=== PATIENT | female | born 1975 | race Caucasian/White ===

== ENCOUNTER 2024-12-24 08:57 | Emergency (ER) | payer OTHER, SELFPAY ==
[2024-12-24] VITALS (11 sets, daily range): BP systolic 116–163; BP diastolic 81–100; PULSE 69–93; RESP 12–18; TEMP 36.6–36.7; O2SAT 96–100; BMI 35.8
--- NOTE | ~2024-12-24 | XR_ITS ---
EXAMINATION: XR CHEST 2 VIEWS HISTORY: cp COMPARISON: Comparison is made with the prior examination dated 09/12/2019. FINDINGS: PA and lateral views of the chest are submitted. The lungs are expanded and clear. There is no pleural effusion, pneumothorax, or pulmonary vascular congestion. The heart is normal in size. The bones are intact. XR/XR chest 2V IMPRESSION: No acute cardiopulmonary abnormality. Electronically signed by: Herson Stevens MD 12/24/2024 09:34 AM EDT
--- NOTE | ~2024-12-24 | CT_ITS ---
EXAMINATION: CT ANGIOGRAM CHEST CLINICAL INFORMATION: Chest pain. Shortness of breath. COMPARISON: None available. TECHNIQUE: Multiple axial images were obtained through the chest after the administration of 65 mL of Omnipaque 350 intravenous contrast. Extensive vascular post-processing including two-dimensional and three-dimensional reformatted images were created and reviewed on an independent workstation. SmartPrep technique This CT examination was performed using dose optimization techniques as appropriate, variously including the following: *Automated exposure control *Adjustment of mA and/or kV according to patient size (this includes techniques or standardized protocols for targeted exams where dose is matched to indication/reason for exam; i.e. extremities or head) *Use of iterative reconstruction technique. DLP: 284 mg centimeter. FINDINGS: Inadequate smart prepped technique. The main pulmonary artery or its main branches are patent without intraluminal filling defects. The subsegmental pulmonary artery branches demonstrated no gross intraluminal filling defects. No aneurysm or dissection, thoracic aorta. No lymphadenopathy, mediastinum or perihilar. No pericardial effusion. No gross consolidation, pleural effusion or pneumothorax. No bronchiectasis. No honeycombing. Nonspecific 1 mm pulmonary nodule in the periphery of the right lower lung lobe. No acute fracture or listhesis in the axial skeleton. Sternum is intact. The ribs are grossly intact. The scapula is intact bilaterally. There is a cystic lesion at the corticomedullary junction of the upper pole and midportion of the right kidney. CT/CT angio chest PE protocol IMPRESSION: No acute pulmonary artery emboli. No aneurysm or dissection, thoracic aorta. No acute airspace disease. Fleischner guidelines were followed. Electronically signed by: Timur Amezcua MD 12/24/2024 02:42 PM EDT
--- NOTE | 2024-12-24 09:00 | ECG_ITS ---
Test Reason : CHEST PAIN Blood Pressure : */* mmHG Vent. Rate : 83 BPM Atrial Rate : 83 BPM P-R Int : 144 ms QRS Dur : 72 ms QT Int : 354 ms P-R-T Axes : 41 4 30 degrees QTcB Int : 415 ms Normal sinus rhythm Cannot rule out Anterior infarct , age undetermined Abnormal ECG No previous ECGs available Referred By: Generic ED Physician Electronically Signed By: MARQUITA RAWSL
[2024-12-24 09:28] LABS: MANUAL DIFF FLAG NO
[2024-12-24 09:29] LABS: Basophils Percent Auto 0.4 % (0-2); Eosinophils Absolute Auto 0.1 X10*3/uL (0.0-0.4); Eosinophils Percent Auto 0.6 % (0-4); Hemoglobin 14.1 g/dl (12.0-16.0); Imm Gran Abs Auto 0.03 X10*3/uL (0.00-0.03); Imm Gran Pct Auto 0.3 % (0.0-0.4); Lymphocytes Absolute Auto 2.1 X10*3/uL (1.2-4.9); Lymphocytes Percent Auto 23.4 % (20-40); Mean Corpuscular HGB Conc 34.4 g/dl (31.0-35.0); Mean Corpuscular Hemoglobin 30.7 pg (27.0-33.0); Mean Corpuscular Volume 89.1 fL (80.0-98.0); Mean Platelet Volume 10.8 fL (9.4-12.3); Monocytes Absolute Auto 0.6 X10*3/uL (0.1-1.2); Monocytes Percent Auto 6.5 % (2-11); Neutrophils Absolute Auto 6.2 x10*3/uL (2.0-8.3); Neutrophils Percent Auto 68.8 % (45-73); Platelet Count 290 X10*3/uL (160-400); Red Cell Distribution Width 12.9 % (11.0-16.0)
[2024-12-24 09:45] LABS: Alanine Aminotransferase 34 U/L (0-31); Albumin Level 4.6 g/dL (3.5-5.0); Alkaline Phosphatase 102 U/L (39-117); Anion Gap 14 (12-20); Aspartate Amino Transferase 20 U/L (5-31); Bilirubin Total 0.4 mg/dL (0.0-1.0); Blood Urea Nitrogen 13 mg/dL (9-16); Carbon Dioxide 26 mmol/L (22-29); Chloride 106 mmol/L (96-108); Creatinine Clr Calc Pharmacy 85.2; Estimated Glomerular Filt Rate > 60; Glucose Random 102 mg/dL (60-115); Sodium 142 mmol/L (135-145)
[2024-12-24 09:54] LABS: Troponin-I High Sensitivity < 2.7 ng/L (<3.5-17.0)
--- NOTE | 2024-12-24 11:36 | ED_ITS ---
HPI - General Adult General Chief complaint: General Medical Stated complaint: Chest Pain Time Seen by Provider: 12/24/24 10:02 Source: patient, RN notes reviewed and old records reviewed Mode of arrival: ambulatory History of Present Illness ED Provider: Annalisa Marin PA-C HPI narrative: 49-year-old female with no significant past medical history presenting to the ED complaining of elevated BP at home, exertional dyspnea, chest pressure/tightness x yesterday, and episode of diaphoresis around 01:00AM. Also reports lightheadedness and sinus pressure x1 week. States apple watch notified her she was tachycardic. Denies fever, chills, cough, abdominal pain, vomiting, diarrhea, dysuria/hematuria. Reports recent travel with multiple flights back in [facility] to [place] over the past 7 months. Denies history of clots or cigarette smoking Related Data Previous Rx's ?Medication ?Instructions ?Recorded amoxicillin 875 mg tablet 875 mg PO BID 5 days #10 tabs 12/24/24 volxhaxhmb-ydiesiivfrwjg-ucgfcfuu 1 cap PO Q4-6H PRN headache #7 caps 12/24/24 50 mg-300 mg-40 mg capsule (Fioricet) Allergies Allergy/AdvReac Type Severity Reaction Status Date / Time codeine [CODEINE] Allergy Unknown ANAPHYLAXIS Verified 12/24/24 09:15 Review of Systems 2 Review of Systems: Yes all other systems are reviewed and are negative Constitutional: Constitutional: Reports as per HPI Neurologic: Denies Abnormal speech present PMFSH Past Medical History Attestation statement: The following information was validated with the patient. Source: old records reviewed Social History Social History Smoked in Last 30 Days: No Use of substances other than those prescribed or required for medical reasons: No Advance Directives: No Advance Directives Information Provided: Yes Physical Exam ED Vital Signs: Vital Signs - 24 hr 12/24/24 09:12 12/24/24 10:02 12/24/24 10:05 Temperature 98.1 F 97.9 F Pulse Rate 82 81 83 Respiratory Rate 18 14 16 Blood Pressure 133/96 H 144/94 H 163/100 H Pulse Oximetry 100 96 99 Oxygen Delivery Method Room Air Room Air Room Air 12/24/24 10:10 12/24/24 10:15 12/24/24 12:11 Temperature 98.0 F Pulse Rate 92 92 74 Respiratory Rate 16 16 14 Blood Pressure 132/89 138/81 134/84 Pulse Oximetry 97 Oxygen Delivery Method Room Air 12/24/24 14:35 12/24/24 15:44 12/24/24 15:44 Temperature 97.9 F 98.0 F Pulse Rate 75 74 69 Respiratory Rate 13 12 Blood Pressure 136/86 126/87 126/87 Pulse Oximetry 97 98 Oxygen Delivery Method Room Air Room Air 12/24/24 15:45 12/24/24 15:46 12/24/24 15:50 Temperature 97.9 F Pulse Rate 92 93 93 Respiratory Rate 16 Blood Pressure 121/86 116/91 H 116/91 H Pulse Oximetry 100 Oxygen Delivery Method Room Air BMI result Body Mass Index 35.8 Const General: cooperative, healthy appearing and no acute distress Orientation/consciousness: patient oriented x3 Limitations: no limitations HENMT Head: Yes normal to inspection and Yes atraumatic Ears: hearing grossly normal bilaterally General nose exam: Normal external nose present Face and sinus: Yes normal facial exam Eyes General: appearance normal, both eyes and all related structures EOM: EOMs intact bilaterally Neck Neck: Yes normal visual inspection and Yes no meningeal signs Resp Effort & Inspection: normal respiratory effort and no respiratory distress Auscultation: clear to auscultation bilaterally, no crackles, no rhonchi and no wheezes Cardio Rate: regular rate Heart sounds: S1 normal heart sound present and S2 normal heart sound present GI Inspection: Yes normal to inspection Palpation (GI): Soft to palpation, nontender, no guarding and not rigid Skin Rashes: no rashes Wounds: no wounds Neuro General: patient oriented x3, tone normal, moves all extremities, no meningeal signs, no focal motor deficits and CN's II-XI intact bilaterally Cranial nerves: Yes CN's II-XII intact bilaterally and Yes Bilaterally intact EOM present Cognition (Neuro): normal cognition Speech: No Abnormal speech present Gait exam (Neuro): Normal gait present Extrem General: Yes normal to inspection, Yes no pedal edema and Yes no calf tenderness Course Course Course Narrative: -troponin x2 negative, mi unlikely -viral testing negative 1320--D-dimer elevated to 238 > will obtain CTA to rule out PE XR chest 2V IMPRESSION: No acute cardiopulmonary abnormality. [address]1913--DA angio chest PE protocol IMPRESSION: No acute pulmonary artery emboli. No aneurysm or dissection, thoracic aorta. No acute airspace disease. Fleischner guidelines were followed. -orthostatic vital signs negative. On re-evaluation patient reports symptomatic improvement. Denies headache at present. Feels comfortable for discharge home at this time. Will discharge with antibiotics for sinusitis and a few pills of Fioricet for headache. Recommended close PCP follow-up. Results discussed with patient including worrisome signs and symptoms and strict return precautions, and when to return to the emergency department. They verbalized understanding and feel safe for discharge at this time. Medications Administered Discontinued Medications Generic Name Dose Route Start Last Admin Trade Name Freq PRN Reason Stop Dose Admin Acetaminophen/Butalbital/Caffeine 1 tab 12/24/24 11:17 12/24/24 11:38 Butalb/Acetamin/Caff 50/325/40 Tablet PO 12/24/24 11:18 1 tab ONCE ONE Administration Iohexol 100 ml 12/24/24 14:29 12/24/24 14:29 Iohexol 350 Mg/Ml 100 Ml Infus..Btl IV 12/24/24 14:30 65 ml ONCE ONE Administration Medical Decision Making Medical Decision Making MDM Narrative: 49-year-old female with no significant past medical history presenting to the ED complaining of elevated BP at home, exertional dyspnea, chest pressure/tightness x yesterday, and episode of diaphoresis around 01:00AM. Also reports lightheadedness and sinus pressure x1 week. On exam vital signs stable, NAD, nontoxic appearing, lungs CTA, abdomen soft/nontender. Concern for ACS vs PE vs ?CHF vs sinusitis vs PNA vs viral illness. Low suspicion for dissection, hypertensive urgency/emergency, dissection, pancreatitis Plan: EKG, labs, UA, CXR, viral testing, SARs, reassess Please refer to course for remaining clinical decision making, interpretation of labs/imaging results, and discussions with consultants and/or family members. Differential Diagnosis Differential Diagnoses: The differential diagnosis associated with the presentation includes As above Admission/Observation Consideration of admission/observation: Escalation of care including admission/observation considered Lab Data MDM Lab Attestation statement: I reviewed the patient's lab results. 12/24/24 09:24 12/24/24 09:24 Labs: Lab Results 12/24/24 12/24/2412/24/25 Range/Units 09:24 11:30 12:23 WBC 9.0 (4.8-10.8) X10*3/uL RBC 4.60 (4.20-5.50) X10*6/uL Hgb 14.1 (12.0-16.0) g/dl Hct 41.0 (37.0-47.0) % MCV 89.1 (80.0-98.0) fL MCH 30.7 (27.0-33.0) pg MCHC 34.4 (31.0-35.0) g/dl RDW 12.9 (11.0-16.0) % Plt Count 290 (160-400) X10*3/uL MPV 10.8 (9.4-12.3) fL Immature Gran % (Auto) 0.3 (0.0-0.4) % Neut % (Auto) 68.8 (45-73) % Lymph % (Auto) 23.4 (20-40) % [place] % (Auto) 6.5 (2-11) % Eos % (Auto) 0.6 (0-4) % Baso % (Auto) 0.4 (0-2) % Lymph # (Auto) 2.1 (1.2-4.9) X10*3/uL [place] # (Auto) 0.6 (0.1-1.2) X10*3/uL Eos # (Auto) 0.1 (0.0-0.4) X10*3/uL Baso # (Auto) 0.0 (0.0-0.2) X10*3/uL Abs Immat Gran (auto) 0.03 (0.00-0.03) X10*3/uL Absolute Neuts (auto) 6.2 (2.0-8.3) x10*3/uL Absolute Nucleated RBC 0.000 (0.0-0.012) X10*3/uL Nucleated RBC % (auto) 0.0 (0.0-0.2) /100WBC D-Dimer High Sensitivty 238 NG/ML Sodium 142 (135-145) mmol/L Potassium 4.0 (3.3-5.1) mmol/L Chloride 106 (96-108) mmol/L Carbon Dioxide 26 (22-29) mmol/L Anion Gap 14 (12-20) BUN 13 (9-16) mg/dL Creatinine 0.74 (0.5-1.4) mg/dL Estim Creat Clear Calc 85.2 Estimated GFR > 60 Random Glucose 102 (60-115) mg/dL Calcium 10.0 (8.4-10.2) mg/dL Magnesium 2.3 (1.6-2.6) mg/dL Total Bilirubin 0.4 (0.0-1.0) mg/dL AST 20 (5-31) U/L ALT 34 H (0-31) U/L Alkaline Phosphatase 102 (39-117) U/L Troponin I High Sens < 2.7 < 2.7 (<3.5-17.0) ng/L B-Natriuretic Peptide < 10 (<100) pg/mL Total Protein 8.0 (6.5-8.0) g/dL Albumin 4.6 (3.5-5.0) g/dL Lipase 16 (8-78) U/L Influenza Type A (PCR) NEGATIVE (Negative) Influenza Type B (PCR) NEGATIVE (Negative) RSV RNA Qual (PCR) NEGATIVE (Negative) SARS-CoV-2 RNA (RT-PCR) NEGATIVE (Negative) Independent Interpretation I performed an independent interpretation of an: EKG (My interpretation EKG normal sinus rhythm rate of 83. ND interval 144. QTC 415. No previous EKG to compare. No STEMI) and Plain X-Ray Radiology Impression Discussion of test interpretation with radiology: I have reviewed the radiologist's reading. External Record Review External record reviewed: Inpatient record, Office record, Outpatient record, Prior outpatient labs, Prior outpatient radiology, Primary care record and Outside ED record Tests considered The following testing was considered but not selected: As above Prescription Management I considered prescription management with: Pain Medication Chronic Conditions Patient?s care impacted by: Other Social Determinants Patient?s care significantly limited by Social Determinants of Health including: Other Social Determinant of Health Discharge Plan Discharge Clinical Impression: Atypical chest pain, Lightheadedness, Exertional dyspnea, Sinusitis Patient Disposition: Home, Self-Care Instructions: Sinusitis (ED), Dyspnea (ED), Noncardiac Chest Pain (ED) Additional Instructions: Your blood work and imaging studies were reassuring. Your CAT scan did not show a blood clot Please have close follow up with her primary care doctor as well as Cardiology. Please call to make an appointment We are treating you for sinusitis with amoxicillin please take as prescribed until completion Fioricet is a combination headache medication please take for headaches as needed. Fioricet does have Tylenol mixed in, so do not exceed 4 g of Tylenol in 1 day If her symptoms persist or worsen you have constant worsening shortness of breath, chest pain, headache, fevers return to the ED Prescriptions: New amoxicillin 875 mg tablet 875 mg PO BID 5 Days Qty: 10 0RF xtadobonzw-gvfkncwpmwxxr-fowu [Fioricet] 50-300-40 mg capsule 1 cap PO Q4-6H PRN (Reason: headache) Qty: 7 0RF Referrals: [facility] [place] [facility] [Provider Group] - 1 week Lashay Mccauley MD [Primary Care Provider] - 3 days Interventions: ED Discharge Assessment Last Done: 12/24/24 15:50 Discharge Date/Time: 12/24/24 15:40 Print Language: Turkish
[2024-12-24] MEDS: Butalb/Acetamin/Caff 50/325/40 TABLET 1 TAB PO (11:38)
[2024-12-24 11:44] LABS: D Dimer High Sensitivity 238 NG/ML
--- OUTSIDE RECORDS SUMMARY | 2024-12-24 11:48 | XMS_ITS | Encounter Summary ---
Author Organization [facility] Address [address] [place] [address] Care Team Providers Care Relay Man Name Role Phone Lashay Mccauley MD Primary Care Provider [phone] Encounter Details Date Type Department Care Team (Late st Contact Info) Description 12/21/2024 4:00 PM EDT Office Visit Adult Medicine [facility] [address] [place] [phone] Joelle Cabrera PA [address] [place] [address] Annual physical exam (Primary Dx); Need for hepatitis C screening test; Primary hypertension Social History Tobacco Use Types Packs/Day Years Used Date Smoking Tobacco: Former Cigarettes Smokeless Tobacco: Never Tobacco Cessation:Counseling Given: Not Answered Comments:Started age 9; max 1/4 PPD; quit age 43 Alcohol Use Standard Drinks/Week Comments Yes 0 (1 standard drink = 0.6 oz pur e alcohol) 2-3 drinks once per month Education Answer Date Recorded What is the highest level of school you have completed or the highest degree you have received? 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 IDENTIFIER: Cristina Corcoran is a 49 y.o. old female who presents for ANNUAL PHYSICAL EXAM. HPI: 49-year-old female presenting to office (with male diesel engine fitter, Ricardo) for annual physical exam. Patient reports wearing glasses and reports last eye exam was 2 months ago at [facility] (need records). Reports last dentistry evaluation was today and cleanings are recommended every 6 months. She states she has never completed formal skin exam and is declining referral to dermatology.She is declining colonoscopy for colon cancer screening and reports previously completing Cologuard(04/04/24). Patient reports following with external HADOOP CONSULTANT provider about a year ago, but states provider subsequently retired and she has not established with replacement. Last mammogram availablefor review dated 07/22/22 and we discussed annual exams continue to be advised. Current Body mass index is 36.94 kg/m??. with goal being less than 25. Blood pressure is severely elevated despite recheck; she reports compliance with lisinopril 10 mg daily. She has known medullary sponge kidney and states she has decided to stop following with nephrology. She is due for COVID-19 vaccine booster. ROS: GENERAL: No fever, shaking chills HEENT: No acute changes in hearing or vision NECK: No lumps or significant neck swelling RESPIRATORY: No wheezing or shortness of breath CARDIOVASCULAR: No chest pain, leg swelling or palpitations BREAST: No lumps, discharge, pain, or change in skin GI: No abdominal pain, vomiting, blood in stools, or black tarry stools : No dysuria, hematuria MUSCULOSKELETAL: +chronic, untreated, low back pain SKIN: No suspicious skin lesions PSYCH: +mood disorder HEMATOLOGY/LYMPHOLOGY No easy bruisability or swollen nodes ENDOCRINE: No polyuria or polydipsia. NEURO: No persistent headache, syncope, seizures PAST MEDICAL HISTORY: Patient Active Problem List Diagnosis Date Noted Hyperlipidemia 07/01/2023 Pneumonia due to COVID-19 virus 10/24/2021 GERD (gastroesophageal reflux disease) 05/31/2021 Cervical spinal stenosis 11/19/2019 Severe obesity (BMI 35.0-39.9) with comorbidity (CMS/HCC) 11/19/2019 Preglaucoma 11/19/2019 Multiple thyroid nodules 06/02/2019 Interstitial cystitis 05/21/2012 Anxiety 06/06/2011 Medullary sponge kidney 11/03/2009 Kidney stone 11/03/2009 Recurrent UTI 11/03/2009 Hypertension 03/05/2006 Endometriosis of uterus 03/05/2006 Past Surgical History: Procedure Laterality Date HYSTERECTOMY with bilateral salpingectomy OTHER SURGICAL HISTORY laparoscopy- endometriosis TUBAL LIGATION Most Recent Immunizations Administered Date(s) Administered H1N1 Inj Preservative Free 11/03/2009 Influenza Quadravalent, MDCK, 0.5ml, preservative free (Flucelvax) 6mo and older 07/01/2023 Influenza trivalent, with preservative (Fluzone; Afluria) 6mo and older 11/01/2016 Moderna SARS-CoV-2 COVID-19, mRNA, LNP-S, preservative free 10/03/2021 Tdap Tetanus diptheria acellular pertussis (Boostrix; Adacel) 7yo and older 12/22/2018 HEALTH MAINTENANCE: Health Maintenance Topic Date Due Hepatitis B Vaccines (1 of 3 - 19+ 3-dose series) Never done HIV Screening Never done Hepatitis C Screening Never done COVID-19 Vaccine ( season) 2024 Breast Cancer Screening 07/22/2024 Depression Screening 12/30/2024 Social Influencers of Health Screening 12/30/2024 Influenza Vaccine (Season Ended) 2025 Hypertension/CHF/CAD Annual BMP Blood Test 10/04/2025 Colorectal Cancer Screening: FIT-DNA (Cologuard) 04/04/2027 DTaP,Tdap,and Td Vaccines (3 - Td or Tdap) 12/22/2028 Cholesterol Screening (Lipid Panel) 10/04/2029 HIB Vaccines Aged Out IPV Vaccines Aged Out Hepatitis A Vaccines Aged Out MMR Vaccines Aged Out Varicella Vaccines Aged Out Meningococcal ACWY Vaccine Aged Out Meningococcal B Vacine Aged Out HPV Vaccines Aged Out Pneumococcal Vaccine: Pediatrics (0 to 5 Years) and At-Risk Patients (6 to 64 Years) Aged Out RSV Immunization Patients Under 20 months Aged Out SOCIAL HISTORY: Social History Tobacco Use Smoking status: Former Current packs/day: 0.30 Types: Cigarettes Smokeless tobacco: Never Tobacco comments: Started age 9; max 1/4 PPD; quit age 43 Substance Use Topics Alcohol use: Yes Comment: 2-3 drinks once per month FAMILY HISTORY: Family History Problem Relation Name Age of Onset Heart attack Mother 61 HLD Heart attack Father 60 some kind of heart condition Hypertension Half-Sister x 2 Heart attack Maternal Grandmother 70 Kidney failure Maternal Grandfather Heart attack Paternal Grandmother some kind of heart disease Alcohol abuse Paternal Grandfather Heart attack Aunt paternal 55 some kind of heart diease Breast cancer Other Great Mat Aunt 50 Throat cancer Uncle maternal +smoker Family Status Relation Name Status Mother Alive Father Alive Half-Sister x 2 Alive MGM MGF PGM PGF Aunt paternal Alive Other Great Mat Aunt Alive Uncle maternal Alive No partnership data on file MEDICATIONS DISCONTINUED/REORDERED: Medications Discontinued During This Encounter Medication Reason nitrofurantoin, macrocrystal-monohydrate, (MACROBID) 100 mg capsule Therapy completed ACTIVE MEDICATIONS: No outpatient medications have been marked as taking for the 12/21/24 encounter (Office Visit) with KEEGAN Hale. ALLERGIES: Allergies Allergen Reactions Codeine vomiting PHYSICAL EXAM: Visit Vitals BP (!) 151/103 (BP Location: Left arm, Patient Position: Sitting, BP Cuff Size: Adult) Pulse 83 Wt 83 kg (182 lb 14.4 oz) SpO2 98% BMI 36.94 kg/m?? Smoking Status Former BSA 1.78 m?? Wt Readings from Last 5 Encounters: 12/21/24 83 kg (182 lb 14.4 oz) 09/23/24 82.1 kg (181 lb) 03/02/24 75.3 kg (166 lb) 12/31/23 75.3 kg (166 lb) 07/01/23 74.8 kg (164 lb 12.8 oz) BMI is greater than 25.0 (above the normal range) - see Plan APPEARANCE: Alert, severely obese, and in no acute distress EYES: PERRLA, conjunctiva and sclera normal. EARS: External ears normal. Canals clear. TMs normal. NOSE/SINUS: Nares normal without drainage MOUTH/THROAT: No posterior pharyngeal erythema or tonsillar enlargement/exudates NECK: Neck supple, no cervical adenopathy, thyroid symmetric and of normal size HEART: RRR with normal S1 and S2, no murmurs, no gallops LUNG: Bilateral lung major clear to auscultation throughout ABDOMEN: Soft, nontender, tympanitic to percussion, normoactive bowel sounds noted throughout all four quadrants, no hepatosplenomegaly, palpable masses, or bruits noted upon auscultation. BACK: No tenderness to palpation noted over cervical, thoracic, lumbar midline; no bony step-off topalpation; good spinal flexion and extension EXTREMITIES: Moving bilateral upper/lower extremities independently; no obvious upper/lower extremity deformity; bilateral upper/lower extremities warm and well perfused without edema NEURO: Awake, alert and oriented x 3 with symmetrical reflexes; CN II through XII intact; upper/lower externally strength 5/5 bilaterally; sensation equal and intact to upper/lower extremities bilaterally; normal gait. SKIN: Skin color, texture, turgor normal. ORDERS: Orders Placed This Encounter Procedures Hepatitis C antibody Basic metabolic panel IMPRESSION: 1. Annual physical exam 2. Need for hepatitis C screening test 3. Primary hypertension PLAN: Annual physical exam / health maintenance: - Breast cancer screening -overdue, advised to schedule before leaving the building - Colon cancer screening starting at age 45 (colonoscopy refused) -patient completed Cologuard in March 2024 - Cervical cancer testing - overdue, advised to schedule with external HADOOP CONSULTANT (as [facility] is currently not accepting new patients) - Blood pressure annual screening performed - Cholesterol screening - up-to-date - Osteoporosis prevention including calcium/vitamin D intake, weight bearing exercise & smokingcessation - Nutritional and exercise counseling - patient advised to pursue at least 30 minutes of exercise most days of the week, limit portion sizes, and avoid eating after dinner - Counseling of injury prevention including fire prevention, smoke alarms and seat belt usage - Screening for depression - using the PHQ-9 - Screening for domestic abuse - One time hepatitis C screening in all adults - Education about skin cancer -patient declining dermatology referral - Recommendations about immunizations - see HPI - Recommendation of an eye exam for glaucoma every 2-4 years in this age range - patient will self-refer - Screening for substance abuse (including tobacco, alcohol, and recreational drugs) - see Substance & Sexuality section of medical record - Genetic cancer risk screening - NO INDICATION: Hereditary Cancer Syndrome Risk Assessment completed and evaluated. No indication found for genetic testing at this time. - In addition to reviewing these issues, I have reviewed the following sections of the chart: Past Medical History, Social History, and Social History - Did you have a dental visit in the last 6 months? See HPI -Blood pressure severely elevated despite recheck. Advised to increase lisinopril to 20 mg nightly for 5 days; blood pressure is persistently >130/80, increase to 30 mg nightly for 5 days; blood pressure is persistently >130/80, increase to 40 mg nightly. Return to office in 2 weeks for bloodpressure reevaluation. - Advised to follow back with PCP in 6 months for routine care; sooner if needed KEEGAN Hale on 12/23/2024 at 8:38 AM EDT documented in this encounter Plan of Treatment Upcoming Encounters Date Type Department Care Team (Late st Contact Info) Description 01/04/2025 4:30 PM EDT Office Visit Adult Medicine [address] [phone] Joelle Cabrera PA [address] [place] [address] 03/23/2025 8:15 AM EDT Office Visit Adult Medicine [address] [phone] Lashay Mccauley MD [address] [place] [address] 06/11/2025 10:00 AM EDT Appointment Radiology Department - [address] [phone] Scheduled Orders Name Type Priority Associated Diagnoses Orde r Schedule Hepatitis C antibody Lab Routine Need for hepatitis C screening test 1 Occurrences starting 12/23/2024 until 12/23/2025 Basic metabolic panel Lab Routine Primary hypertension 1 Occurrences starting 12/23/2024 until 12/23/2025 documented as of this encounter Visit Diagnoses Diagnosis Annual physical exam- Primary Routine general medical examination at a health care facility Need for hepatitis C screening test Special screening examination for other specified viral diseases Primary hypertension Unspecified essential hypertension documented in this encounter Discontinued Medications Medication Sig Discontinue Reason Start Date End Da te nitrofurantoin, macrocrystal-monohydrate , (MACROBID) 100 mg capsule Take 1 capsule (100 mg total) by mouth 1 (one) time each day if needed (post coital prophylaxis). Therapy completed 07/01/2023 12/21/2024 documented as of this encounter Care Teams Relay Man Relationship Specialty Start Date End Date Lashay Mccauley MD [address] [place] [id number] PCP - General Internal Medicine 05/11/21 documented as of this encounter
--- OUTSIDE RECORDS SUMMARY | 2024-12-24 11:48 | XMS_ITS | Clinical Summary ---
Author Organization [facility] [address] [facility] Address [address] [place] [address] Phone Care Team Providers Care Adjunct History Instructor Name Role Phone Lashay Mccauley MD Primary Care Provider [phone] Allergies Active Allergy Reactions Criticality Noted Date Comments Codeine 03/05/2006 vomiting Medications loratadine (CLARITIN) 10 mg tablet Take 1 tablet (10 mg total) by mouth 1 (one) time each day. Active fluticasone propionate (FLONASE) 50 mcg/actuation nasal spray Administer 2 sprays into each nostril 1 (one) time each day. 08/28/20 20 Active famotidine (PEPCID) 20 mg tablet Take 1 tablet (20 mg total) by mouth every 12 (twelve) hours. 180 tablet 11/21/19 25 Active lisinopriL (PRINIVIL,ZEST RIL) 10 mg tablet Take 1 tablet (10 mg total) by mouth 1 (one) time each day. 90 tablet 1 12/09/19 25 Active lisinopriL (PRINIVIL,ZEST RIL) 10 mg tablet TAKE 1 TABLET BY MOUTH EVERY DAY 90 tablet 1 08/26/20 24 025 Discontinued nitrofurantoin , macrocrystal-m onohydrate, (MACROBID) 100 mg capsule Take 1 capsule (100 mg total) by mouth 1 (one) time each day if needed (post coital prophylaxis). 07/01/20 23 025 Discontinued(Th erapy completed) Active Problems Problem Noted Date Diagnosed Date Hyperlipidemia 07/01/2023 Pneumonia due to COVID-19 virus 10/24/2021 Overview (08/24/2024): 3.28.21 GERD (gastroesophageal reflux disease) 1 Cervical spinal stenosis 11/19/2019 Overview (08/24/2024): Dr. 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 No evidence for malignancy. Interstitial cystitis 05/21/2012 Anxiety 06/06/2011 Medullary sponge kidney 11/03/2009 Overview (08/24/2024): Dr. Aceves; [facility] Kidney stone 11/03/2009 Overview (08/24/2024): right Recurrent UTI 11/03/2009 Overview (08/24/2024): [facility] Hypertension 03/05/2006 Endometriosis of uterus 03/05/2006 Encounters Date Type Department Care Team Description 12/23/2024 Nurse Triage Adult Medicine [address] [phone] Lashay Mccauley MD 12/21/2024 4:00 PM EDT Office Visit Adult Medicine [address] [phone] Joelle Cabrera PA Annual physical exam (Primary Dx); Need for hepatitis C screening test; Primary hypertension from Last 3 Months Immunizations Name Administration Dates Next Due H1N1 Inj Preservative Free 11/03/2009 Influenza Quadravalent, MDCK , 0.5ml, preservative free (Flucelvax) 6mo and older 07/01/2023,05/31/2021,07/22/2020,2017 Influenza trivalent, with preservative (Fluzone; Afluria) 6mo and older 11/01/2016 Moderna SARS-CoV-2 COVID-19, mRNA, LNP-S, preservative free 10/03/2021 Tdap Tetanus diptheria acell ular pertussis (Boostrix; Adacel) 7yo and older 12/22/2018,12/02/2008 Surgical History Surgery Date Site/Laterality Comments OTHER SURGICAL HISTORY laparoscopy- endometriosis TUBAL LIGATION HYSTERECTOMY with bilateral salpingectomy Medical History Medical History Date Comments Essential hypertension, benign 03/05/2006 Endometriosis of uterus 03/05/2006 Medullary sponge kidney 11/03/2009 Recurrent UTI 11/03/2009 Kidney stone 11/03/2009 GERD (gastroesophageal reflux disease) Multiple thyroid nodules 06/02/2019 U/S 12/22 019- benign follicular cells, Hurthle cells and colloid. No evidence for malignancy. Anxiety 06/06/2011 Cervical disc herniation 11/19/2019 Dr. Jimmy mcgee Hyperlipidemia 07/01/2023 Interstitial cystitis 05/21/2012 Preglaucoma 11/19/2019 Family History Medical History Relation Name Comments Heart attack Aunt paternal some kind of h eart diease Heart attack Father some kind of h eart condition Hypertension Half-Sister x 2 Kidney failure Maternal Grandfather Heart attack Maternal Grandmother Heart attack Mother HLD Breast cancer Other Great Mat Aunt Alcohol abuse Paternal Grandfather Heart attack Paternal Grandmother some k ind of heart disease Throat cancer Uncle maternal +smoker Relation Name Status Comments Aunt paternal Alive Father Alive Half-Sister x 2 Alive Maternal Grandfather Maternal Grandmother Mother Alive Other Great Mat Aunt Alive Paternal Grandfather Paternal Grandmother Uncle maternal Alive Social History Tobacco Use Types Packs/Day Years [...] file Not on file Not on file Obstetrics History Last Filed Vital Signs Vital Sign Reading Time Taken Comments Blood Pressure 151/103 12/21/2024 4:12 PM EDT Pulse 83 12/21/2024 4:12 PM EDT Temperature 36.1 ??C (97 ??F) 09/23/2024 8:35 AM EST Respiratory Rate 15 09/23/2024 8:35 AM EST Oxygen Saturation 98% 12/21/2024 4:12 PM EDT Inhaled Oxygen Concentration - - Weight 83 kg (182 lb 14.4 oz) 12/21/2024 4:12 P M EDT Height 149.9 cm (4' 11 ) 09/23/2024 8:35 AM EST Body Mass Index 36.94 09/23/2024 8:35 AM EST Plan of Treatment Upcoming Encounters Date Type Department Care Team (Late st Contact Info) Description 01/04/2025 4:30 PM EDT Office Visit Adult Medicine [address] [phone] Joelle Cabrera PA [address] [place] [address] 03/23/2025 8:15 AM EDT Office Visit Adult Medicine [address] [phone] Lashay Mccauley MD [address] [place] [address] 06/11/2025 10:00 AM EDT Appointment Radiology Department - [address] [phone] Health Maintenance Due Date Last Done Comments Hepatitis B Vaccines (1 of 3 - 19+ 3-dose series) 1995 HIV Screening 08/31/2022 Hepatitis C Screening 08/31/2022 COVID-19 Vaccine ( season) 2024 10/03/2021, 02/22/2021, 01/24/2021 Breast Cancer Screening 07/22/2024 07/22/20 22, 06/09/2021, 12/29/2018 Depression Screening 12/30/2024 12/31/2023, 12/31/19 24 Social Influencers of Health Screening 12/30/2024 12/31/2023 Influenza Vaccine (Season Ended) 2025 07/01/2023, 07/31/2022, 05/31/2021, Additional history exists Hypertension/CHF/CAD Annual BMP Blood Test 10/04/2025 10/04/2024, 02/13/2024, 02/13/2024 Colorectal Cancer Screening: FIT-DNA (Cologuard) 04/04/2027 04/04/2024, 04/04/2024, 04/04/2024 DTaP,Tdap,and Td Vaccines (3 - Td or Tdap) 12/22/2028 12/22/2018, 12/02/2008 Cholesterol Screening (Lipid Panel) 10/04/2029 10/04/2024, 02/13/2024, 02/13/2024, Additional history exists HIB Vaccines Aged Out No longer eligi ble based on patient's age to complete this topic HPV Vaccines Aged Out No longer eligi ble based on patient's age to complete this topic Hepatitis A Vaccines Aged Out No long er eligible based on patient's age to complete this topic IPV Vaccines Aged Out No longer eligi ble based on patient's age to complete this topic MMR Vaccines Aged Out No longer eligi ble based on patient's age to complete this topic Meningococcal ACWY Vaccine Aged Out N o longer eligible based on patient's age to complete this topic Meningococcal B Vacine Aged Out No lo nger eligible based on patient's age to complete this topic Pneumococcal Vaccine: Pediatrics (0 to 5 Years) and At-Risk Patients (6 to 64 Years) Aged Out No longer eligible based on patient's age to complete this topic RSV Immunization Patients Under 20 months Aged Out No longer eligible based on patient's age to complete this topic Varicella Vaccines Aged Out No longer eligible based on patient's age to complete this topic Procedures Procedure Name Priority Date/Time Associated Diagnosis Comments COMPREHENSIVE METABOLIC PANEL Routine 10/04/2024 8:56 AM EST Hyperlipidemia, unspecified hyperlipidemia type Primary hypertension LIPID PANEL WITH REFLEX TO DIRECT LDL Routine 10/04/2024 8:56 AM EST Hyperlipidemia, unspecified hyperlipidemia type Primary hypertension FIT-DNA Routine 04/04/2024 DEPRESSION SCREENING Routine 12/31/2023 SCREENING MAMMOGRAPHY BI 2-VIEW BREAST INC CAD Routine 07/22/2022 6:20 PM EDT Encounter for screening mammogram for malignant neoplasm of breast from Last 3 Months or Most Recently Relevant to Health Maintenance Results * Lipid panel with reflex to direct LDL (10/04/2024 8:56 AM EST) Cholesterol 188 0 - 200 mg/dL LAB CHEMISTRY METHOD 10/04/2024 1:11 PM [facility] Triglycerides 122 0 - 150 mg/dL LAB CHEMISTRY METHOD 10/04/2024 1:11 PM [facility] HDL 74 >=40 mg/dL LAB CHEMISTRY METHOD 10/04/2024 1:11 PM [facility] LDL Calculated 90 0 - 100 mg/dL LAB CHEMISTRY METHOD 10/04/2024 1:11 PM [facility] VLDL Cholesterol Roque 24.4 mg/dL LAB CHEMISTRY METHOD 10/04/2024 1:11 PM [facility] Non HDL Chol. (LDL+VLDL) 114 <145 mg/dL LAB CHEMISTRY METHOD 10/04/2024 1:11 PM [facility] Chol/HDL Ratio 2.5 0.0 - 4.4 LAB CHEMISTRY METHOD 10/04/2024 1:11 PM [facility] Blood Venous blood specimen / Unknown Venipuncture / Unknown 10/04/2024 8:56 AM EST 10/04/2024 8:56 AM EST Laina ALLISON LAB BLOOD ORDERABLES Final Resul t [facility] [address] [place] [address], * Comprehensive metabolic panel (10/04/2024 8:56 AM EST) Sodium 139 133 - 145 mmol/L LAB CHEMISTRY METHOD 10/04/2024 1:11 PM EST [facility] Potassium 4.2 3.5 - 5.5 mmol/L LAB CHEMISTRY METHOD 10/04/2024 1:11 PM [facility] Chloride 108 96 - 110 mmol/L LAB CHEMISTRY METHOD 10/04/2024 1:11 PM [facility] CO2 27 21 - 32 mmol/L LAB CHEMISTRY METHOD 10/04/2024 1:11 PM [facility] Anion Gap 4 3 - 11 LAB CHEMISTRY METHOD 10/04/2024 1:11 PM [facility] Glucose 93 70 - 100 mg/dL LAB CHEMISTRY METHOD 10/04/2024 1:11 PM [facility] BUN 15 5 - 25 mg/dL LAB CHEMISTRY METHOD 10/04/2024 1:11 PM [facility] Creatinine 0.77 0.50 - 1.10 mg/dL LAB CHEMISTRY METHOD 10/04/2024 1:11 PM [facility] eGFR 95 >=60 mL/min/1. 73m2 LAB CHEMISTRY METHOD 10/04/2024 1:11 PM [facility] Comment:Calculation based on the??Chronic Kidney Disease Epidemiology Collaboration (CKD-EPI) equation refit??without adjustment for race. BUN/Creatinine Ratio 19.5 LAB CHEMISTRY METHOD 10/04/2024 1:11 PM [facility] Calcium 9.5 8.5 - 10.5 mg/dL LAB CHEMISTRY METHOD 10/04/2024 1:11 PM [facility] AST (SGOT) 18 10 - 42 unit/L LAB CHEMISTRY METHOD 10/04/2024 1:11 PM [facility] ALT (SGPT) 30 10 - 60 unit/L LAB CHEMISTRY METHOD 10/04/2024 1:11 PM [facility] Alkaline Phosphatase 59 42 - 121 unit/L LAB CHEMISTRY METHOD 10/04/2024 1:11 PM [facility] Total Protein 7.2 6.0 - 8.0 g/dL LAB CHEMISTRY METHOD 10/04/2024 1:11 PM [facility] Albumin 4.0 3.2 - 5.0 g/dL LAB CHEMISTRY METHOD 10/04/2024 1:11 PM [facility] Total Bilirubin 0.4 0.0 - 1.4 mg/dL LAB CHEMISTRY METHOD 10/04/2024 1:11 PM [facility] Blood Venous blood specimen / Unknown Venipuncture / Unknown 10/04/2024 8:56 AM EST 10/04/2024 8:56 AM EST Laina ALLISON LAB BLOOD ORDERABLES Final Resul t [facility] [address] [place] [address], * FIT-DNA (Cologuard) (04/04/2024) Pathologist [facility] Colorectal Cancer Screening: FIT-DNA (Cologuard) no interpretation , abstracted Historical Provider HEALTH MAINTENANCE Final Result * Depression Screening (12/31/2023) Pathologist [facility] Depression Screening abstracted Historical Provider HEALTH MAINTENANCE Final Result * SCREENING MAMMOGRAPHY BI 2-VIEW BREAST INC CAD (07/22/2022 6:20 PM EDT) Anatomical Region Laterality Modality Radiographic Carrie ging 06/09/2021 12:2 6 PM EDT Narrative 07/23/2022 12:16 PM EDT This is a summary report. The complete report is available in the patient's medical record. If you cannot access the medical record, please contact the sending organization for a detailed fax or copy. Exam: Screening mammogram Findings: Digital bilateral full-field screening mammography is performed with tomosynthesis and interpreted with the aid of computer-aided detection. ??Comparison is made with 06/09/2021 and 12/29/2018. Breast parenchyma is heterogeneously dense, limiting mammographic sensitivity. ??No new suspicious mass, architectural distortion, or suspicious calcifications. Impression: No mammographic evidence of malignancy. BI-RADS 1 - negative Procedure Note Ainsley Mcintosh MD - 10/27/2023 This is a summary report. The complete report is available in thepatient's medical record. If you cannot access the medical record, pleasecontact the sending organization for a detailed fax or copy. Exam: Screening mammogram Findings: Digital bilateral full-field screening mammography is performedwith tomosynthesis and interpreted with the aid of computer-aideddetection. Comparison is made with 06/09/2021 and 12/29/2018. Breast parenchyma is heterogeneously dense, limiting mammographicsensitivity. No new suspicious mass, architectural distortion, orsuspicious calcifications. Impression: No mammographic evidence of malignancy. BI-RADS 1 - negative Parth Lima MD IMG XR PROCEDURES Final Result from Last 3 Months or Most Recently Relevant to Health Maintenance Insurance [employer] Care Teams Adjunct History Instructor Relationship Specialty Start Date End Date Lashay Mccauley MD [address] [place] [address] PCP - General Internal Medicine 05/11/21
--- OUTSIDE RECORDS SUMMARY | 2024-12-24 11:49 | XMS_ITS | Encounter Summary ---
Author Organization [facility] Address [address] [place] [address] Care Team Providers Care Business Writer Name Role Phone Lashay Mccauley MD Primary Care Provider [phone] Encounter Details Date Type Department Care Team (Late st Contact Info) Description 12/23/2024 Nurse Triage Adult Medicine [facility] [address] [place] [address] Lashay Mccauley MD [address] [place] [address] Social History Tobacco Use Types Packs/Day Years Used Date Smoking Tobacco: Former Cigarettes Smokeless Tobacco: Never Comments:Started age 9; max 1/4 PPD; quit [...] on file documented as of this encounter Progress Notes * Lashay Mccauley MD - 12/23/2024 3:01 PM EDT Will not give abx without seeing her * Haylie Delaney RN - 12/23/2024 2:39 PM EDT Pt states she was just in the office and reported her sinus symptoms to Joelle Cabrera. She statesJoelle Cabrera blew these complaints off as she was concerned about her elevated BP. Pt is refusing to come for a separate visit as she cannot afford another $100.00 co-pay. She will wait until her next appointment in 2 weeks. She would like her PCP to be sent this message to see if she will send her antibiotics. * Haylie Delaney RN - 12/23/2024 2:37 PM EDT Reason for Disposition ? ? [1] Sinus congestion (pressure, fullness) AND [2] present > 10 days Answer Assessment - Initial Assessment Questions 1. LOCATION: Where does it hurt? Pt states she has pain in her nose, eyes and forehead. 2. ONSET: When did the sinus pain start? (e.g., hours, days) 12/13/24 3. SEVERITY: How bad is the pain? (Scale 1-10; mild, moderate or severe) - MILD (1-3): Doesn't interfere with normal activities. - MODERATE (4-7): Interferes with normal activities (e.g., work or school) or awakens from sleep. - SEVERE (8-10): Excruciating pain and patient unable to do any normal activities. She rates the pain as 7/10 4. RECURRENT SYMPTOM: Have you ever had sinus problems before? If Yes, ask: When was the last time? and What happened that time? Yes. She has allergies and normally gets sinus infections. She states typically they prescribe antibiotics and steroids at times. 5. NASAL CONGESTION: Is the nose blocked? If Yes, ask: Can you open it or must you breathe through your mouth? Yes. She is breathing from her mouth. 6. NASAL DISCHARGE: Do you have discharge from your nose? If so ask, What color? Fluorescent yellow/green 7. FEVER: Do you have a fever? If Yes, ask: What is it, how was it measured, and when did it start? No fever 8. OTHER SYMPTOMS: Do you have any other symptoms? (e.g., sore throat, cough, earache, difficultybreathing) Headache, slight earache 9. : Is there any chance you are ? When was your last menstrual period? No. She is s/p hysterectomy. Protocols used: Sinus Pain or [id number] * KEEGAN Hale - 12/23/2024 2:24 PM EDT appt maybe appropriate. KEEGAN Hale * Farzana Benavidez LPN - 12/23/2024 1:21 PM EDT Please triage documented in this encounter Plan of Treatment Upcoming Encounters Date Type Department Care Team (Late st Contact Info) Description 01/04/2025 4:30 PM EDT Office Visit Adult Medicine [address] [phone] Joelle Cabrera PA [address] [place] [address] 03/23/2025 8:15 AM EDT Office Visit Adult Medicine [address] [phone] Lashay Mccauley MD [address] [place] [address] 06/11/2025 10:00 AM EDT Appointment Radiology Department - [address] [phone] documented as of this encounter Visit Diagnoses Not on filedocumented in this encounter Care Teams Business Writer Relationship Specialty Start Date End Date Lashay Mccauley MD [address] [place] [id number] PCP - General Internal Medicine 05/11/21 documented as of this encounter
[2024-12-24 12:18] LABS: Influenza A PCR NEGATIVE (Negative); Influenza B PCR NEGATIVE (Negative); Resp Syncy Virus RNA Qual PCR NEGATIVE (Negative); SARS COV2 PCR INHOUSE NEGATIVE (Negative)
[2024-12-24 12:26] LABS: Lipase 16 U/L (8-78); Magnesium 2.3 mg/dL (1.6-2.6)
[2024-12-24 12:41] LABS: B Type Natriuretic Peptide < 10 pg/mL (<100)
[2024-12-24 13:00] LABS: Troponin-I High Sensitivity < 2.7 ng/L (<3.5-17.0)
[2024-12-24] MEDS: iohexoL 350 MG/ML 100 ML INFUS..BTL IV (14:29)
== END 2024-12-24 15:40 | disposition home or self-care (01) ==
PROVIDERS: Physician Assistant; Emergency Provider Emergency Medicine; PCP Internal Medicine
DX: J32.9 Chronic sinusitis, unspecified (principal); R07.89 Other chest pain; R42 Dizziness and giddiness; R06.02 Shortness of breath; Z03.818 Encounter for observation for suspected exposure to other biological agents ruled out; Z79.899 Other long term (current) drug therapy
CPT/HCPCS: 0241U; 36415; 71046; 71275; 80053; 83690; 83735; 83880; 84484; 85025; 85379; 93005; 99284; 99285; Q9967

== ENCOUNTER → 2024-12-24 09:00 | Outpatient (BNV) | payer OTHER, SELFPAY | PROVIDERS: Emergency Provider Emergency Medicine; PCP Internal Medicine; Visit Provider Internal Medicine | DX: R94.31 Abnormal electrocardiogram [ECG] [EKG] (principal); R07.9 Chest pain, unspecified | CPT/HCPCS: 93010 ==

== ENCOUNTER → 2024-12-24 09:17 | Outpatient (BNV) | payer SELFPAY | PROVIDERS: PCP Internal Medicine; Visit Provider Radiology Diagnostic Radiology | DX: R07.9 Chest pain, unspecified (principal); R06.02 Shortness of breath | CPT/HCPCS: 71046; 71275 ==

== ENCOUNTER 2025-03-19 15:02 | Emergency (ER) | payer OTHER, SELFPAY ==
[2025-03-19 15:15] VITALS: BP 129/83; PULSE 80; RESP 14; TEMP 36.6; O2SAT 98; BMI 32.3
--- NOTE | 2025-03-19 16:16 | ED_ITS ---
HPI - Eye Problem General Chief complaint: Eye Problems Stated complaint: bilat eye infection? Time Seen by Provider: 03/19/25 15:14 Source: patient Mode of arrival: ambulatory Limitations: no limitations History of Present Illness ED Provider: Reyna Pope NP HPI Narrative: Patient is a 49-year-old female who presents emergency department for evaluation. With the past 5 days she has been having eye irritation initially started on the right with a stye to the lower medial midline and associated redness to the eye. The following day she developed right eye with redness irritation and what she presumes to be a stye. The eyes are watery. Described as ?irritated? but not particularly painful. Does not have a foreign body sensation to either eye. Does not wear contact lenses. Denies posterior eye pain, headache, vision changes, dizziness, lightheadedness, nausea or vomiting. No fevers or chills Related Data Previous Rx's ?Medication ?Instructions ?Recorded amoxicillin 875 mg tablet 875 mg PO BID 5 days #10 tab s 12/24/24 ynreaeankq-osfbvefxymcgg-lfrfkjuo 1 tab PO Q6H PRN hea dache #7 tabs 12/28/24 50 mg-325 mg-40 mg tablet polymyxin B sulfate 10,000 1 drp ophthalmic (eye) Q3H 7 days 03/19/25 unit-trimethoprim 1 mg/mL eye drops #10 mL Allergies Allergy/AdvReac Type Severity Reaction Status Date / Time codeine (CODEINE) Allergy Unknown ANAPHYLAXIS Verified 03/19/25 15:17 Review of Systems Review of Systems: Yes all other systems are reviewed and are negative PMFSH Past Medical History Attestation statement: The following information was validated with the patient. Source: old records reviewed Social History Social History Advance Directives: No Advance Directives Information Provided: No Physical Exam Vital Signs: Vital Signs: Last Vital Signs Temp 98 F 03/19/25 16:52 Pulse 80 03/19/25 16:52 Resp 14 03/19/25 16:52 BP 129/83 03/19/25 16:52 Pulse Ox 98 03/19/25 16:52 O2 Del Method Room Air 03/19/25 16:52 BMI result Body Mass Index 32.3 Appearance: Alert.?Oriented to person, place and time. No acute distress.?Normal affect. Eyes: Pupils equal, round and reactive to light.? EOMI. No nystagmus. Conjunctival erythema and injected. Right lower medial lid with stye, mid left lower lid stye. Sclera normal. No chemosis. No hyphema. ENT: Pharynx normal.?? Neck: Normal inspection.? Neck supple.?? CVS: Heart sounds normal. Normal heart rate and rhythm.? Pulses normal.?? Respiratory: No respiratory distress.? Lung sounds clear to auscultation bilate rally?? Skin: Skin warm and dry.? Normal skin color.? Extremities: No lower extremity edema.? Neuro: Moves all extremities spontaneously. Sensation intact bilaterally. No focal neuro deficits. Ambulates with normal steady gait. Medical Decision Making Medical Decision Making MDM Narrative: Patient is a 49-year-old female who presents emergency department for evaluation of bilateral eye redness irritation and size as per HPI and physical exam portion of this note. Examination is concerning for associated blepharitis with bilateral hordeolum. No overt eye pain or foreign body sensation to suggest corneal abrasion/ulcer. No subconjunctival hemorrhage. No associated unilateral headache, fixed pupil, associated vomiting, or increased intra-ocular pressure to suggest acute angle glaucoma. No periorbital edema erythema or warmth to suggest periorbital cellulitis, no painful EOMI to suggest orbital cellulitis. Not described as a severe constant boring pain worse at night in the morning, nonradiating, to suggest scleritis. No ciliary flushing or consensual photophobia to suggest uveitis/iritis. Atraumatic in nature, not consistent with penetrating injury or globe rupture additionally no hyphema. No painless acute loss of vision to suggest retinal detachment, vitreous detachment for hemorrhage. Reviewed conservative treatment, warm compresses, lid scrubs, antibiotic with I recommended eye ointment she feels this would be too difficult to apply is worried it may obscure her vision she does not have extensive driving for work, she would prefer to have antibiotic drops although I did discuss with the that may not be as beneficial she verbalizes understanding of this, discussed outpatient follow-up with PCP and strict return precautions given. All questions answered Differential Diagnosis Differential Diagnoses: The differential diagnosis associated with the presentation includes (See narrative above) Admission/Observation Consideration of admission/observation: Escalation of care including admission/observation considered Independent Historian Clinical information obtained from an independent historian. History obtained from or confirmed by: Friend External Record Review External record reviewed: Outpatient record Prescription Management I considered prescription management with: Antibiotic Discharge Plan Discharge Clinical Impression: Blepharitis of both eyes, Hordeolum Patient Disposition: Home, Self-Care Instructions: Stye (ED), Blepharitis (ED) Additional Instructions: As discussed, it is important to apply warm moist compresses for 10-15 minutes 4-6 times daily. Performed lid scrubs it with warm water and non scented soaps such as baby shampoo 2-3 times daily. Prescription for antibiotic drops has been sent to your pharmacy. Please complete the entire course. Return with any new or worsening symptoms or concerns which include but is not limited to worsening redness pain swelling, fevers, chills, pain with movement of your eyes, vision changes. Prescriptions: New polymyxin B sulf-trimethoprim 10,000 unit- 1 mg/mL drops 1 drp ophthalmic (eye) Q3H 7 Days Qty: 10 0RF Rx Instructions: while awake; do not exceed 6 doses in 24 hours No Action amoxicillin 875 mg tablet 875 mg PO BID 5 Days Qty: 10 0RF yeenxbidrf-ahoniebfhcrty-rcdv 50-325-40 mg tablet 1 tab PO Q6H PRN (Reason: headache) Qty: 7 0RF Referrals: Cori Oropeza NP [Primary Care Provider, Pediatrics] Interventions: ED Discharge Assessment Last Done: 03/19/25 16:52 Discharge Date/Time: 03/19/25 16:53 Print Language: Wallisian
[2025-03-19 16:52] VITALS: BP 129/83; PULSE 80; RESP 14; TEMP 36.6; O2SAT 98
== END 2025-03-19 16:53 | disposition home or self-care (01) ==
PROVIDERS: Emergency Provider Emergency Medicine; PCP Nurse Practitioner Pediatrics
DX: H00.015 Hordeolum externum left lower eyelid (principal); H00.012 Hordeolum externum right lower eyelid; H01.005 Unspecified blepharitis left lower eyelid; H01.002 Unspecified blepharitis right lower eyelid
CPT/HCPCS: 99283; 99284